=== PATIENT | male | born 1970 ===

== ENCOUNTER 2017-09-21 08:34 | Emergency (ER) | payer OTHER ==
[~2017-09-21] VITALS: Ht 182.9 cm; Wt 108.9 kg
== END 2017-09-21 11:18 | disposition home or self-care (01) ==
LOC: ER 08:34
DX: S51.811A Laceration without foreign body of right forearm, initial encounter (principal); W26.0XXA Contact with knife, initial encounter; Y93.89 Activity, other specified; Y92.69 Other specified industrial and construction area as the place of occurrence of the external cause; Y99.8 Other external cause status